=== PATIENT | female | born 1950 | race African-American/Black ===

== ENCOUNTER 2020-12-05 17:45 | Emergency (ER) | payer OTHER, MEDICAID ==
[~2020-12-05] VITALS: Ht 165.1 cm; Wt 45.4 kg
[2020-12-05 17:55] VITALS: BP 136/75
--- NOTE | 2020-12-05 18:06 | NUR ---
AMBULATED TO BED 4
--- NOTE | 2020-12-05 18:17 | NUR ---
70 Y/O FEMALE BIB DAUGHTER C/O EPIGASTRIC PAIN 04/04 DESCRIBES BURNING RADIATES TO NECK/HEAD X6DAYS. PT STATES +N/V/D. PT SAW PCP 11/26/20 AND WAS DIAGNOSED WITH H. PYLORI, PRESCRIBED METRONIDAZOLE, OMEPRAZOLE, AND CLARITHOMYCIN. PT STARTED TAKING MEDS 11/29/20 AND STATED THAT SHE IS FEELING WORSE. PT TOOK TRAMADOL WITH SOME RELIEF. ABD IS SOFT, FLAT, NON-TENDER TO PALPATION, BOWEL SOUNDS ACTIVE X4 WITH LAST BM 12/04/20. PMH: GLAUCOMA, COPD, EMPHESEMA, OSTEOPOROSIS, AND NEUROPATHY ALLERGIES: ASPIRIN, PCN
[2020-12-05] MEDS ORDERED: DICYCLOMINE HCL LIQUID 20 MG, ALUMINUM HYD/MAG/SIMETHICONE 30 ML, LIDOCAINE VISCOUS 2% ... PO ONE ×3 (18:30)
[2020-12-05] MEDS ORDERED: KETOROLAC 60 MG/2 ML VIAL IM ONE (18:30)
[2020-12-05] MEDS ORDERED: LIDOCAINE VISCOUS 2% 20 ML UDC ONE (18:33)
[2020-12-05] MEDS ORDERED: ALUMINUM HYD/MAG/SIMETHICONE 30 ML UDC ONE (18:34)
[2020-12-05] MEDS ORDERED: DICYCLOMINE HCL LIQUID 10 MG/5 ML UDC ONE (18:34)
--- NOTE | 2020-12-05 18:50 | NUR ---
EMT at pt bedside at EKG.
--- NOTE | 2020-12-05 19:08 | NUR ---
Pt taken to CT via W/C.
--- NOTE | 2020-12-05 19:14 | NUR ---
Gave report to JON Burgos, transfer of care at this time.
[2020-12-05] MEDS ORDERED: ONDA8TAB87 PO (19:36)
[2020-12-05] MEDS ORDERED: TRAM50TA3 PO (19:36)
--- NOTE | 2020-12-05 20:15 | NUR ---
Patient discharged with v/s stable. Written and verbal after care instructions given and explained. Patient alert, oriented and verbalized understanding of instructions. Ambulatory with steady gait. All questions addressed prior to discharge. ID band removed. Patient advised to follow up with PMD. Rx of TRAMADOL AND ZOFRAN given. Patient educated on indication of medication including possible reaction and side effects. Opportunity to ask questions provided and answered.
== END 2020-12-05 20:15 | disposition home or self-care (01) ==
LOC: MED 17:45
DX: R10.13 Epigastric pain (principal); H93.13 Tinnitus, bilateral; F17.210 Nicotine dependence, cigarettes, uncomplicated; Z71.6 Tobacco abuse counseling
CPT/HCPCS: 70450; 81002; 93005; 96372; 99284; J1885